=== PATIENT | male | born 1990 | race Caucasian/White ===

== ENCOUNTER 2018-07-08 09:40 | Emergency (ER) | payer OTHER ==
[~2018-07-08] VITALS: Ht 175.3 cm; Wt 78.5 kg
[~2018-07-08 09:40] MED LIST: CARB200T3 PO
--- NOTE | 2018-07-08 09:59 | PHYS DOC ---
Past History Past Medical History: No Pertinent History, Seizure Past Surgical History: Appendectomy, Tonsillectomy Smoking: Non-smoker Alcohol Use: None Drug Use: None Adult General Chief Complaint Chief Complaint: EYE PROBLEMS HPI HPI Patient is a 28 year old male who presents with right eye irritation. This started this morning. Watery drainage is present. No photophobia. No glasses or contact lens use. No [id number] work or welding. No sick contacts with conjunctivitis. No change in vision visual acuity. Nothing seems to make it better or worse. He felt like there was something in his eye and so tried rinsing it out this morning without any improvement. [] Review of Systems Review of Systems Constitutional: Denies fever or chills [] Eyes: See history of present illness[] HENT: Denies nasal congestion or sore throat [] Respiratory: Denies cough or shortness of breath [] Cardiovascular: No chest pain or palpitations[] GI: Denies abdominal pain, nausea, vomiting, bloody stools or diarrhea [] : Denies dysuria or hematuria [] Musculoskeletal: Denies back pain or joint pain [] Integument: Denies rash or skin lesions [] Neurologic: Denies headache, focal weakness or sensory changes [] Endocrine: Denies polyuria or polydipsia [] All other systems were reviewed and found to be within normal limits, except as documented in this note. Allergies Allergies Allergies Coded Allergies Type Severity Reaction Last Updated Verified No Known Drug Allergies 06/27/13 No Physical Exam Physical Exam Constitutional: Well developed, well nourished, no acute distress, non-toxic appearance. [] HENT: Normocephalic, atraumatic, bilateral external ears normal, oropharynx moist, no oral exudates, nose normal. [] Eyes: PERRLA, EOMI, conjunctiva injected on the right side, limbic sparing is present, normal fundus exam, watery discharge on the right. No fluorescein uptake.[] Neck: Normal range of motion, no tenderness, supple, no stridor. [] Cardiovascular:Heart rate regular rhythm, no murmur [] Lungs & Thorax: Bilateral breath sounds clear to auscultation [] Abdomen: Not examined. [] Skin: Warm, dry, no erythema, no rash. [] Back: No tenderness, no CVA tenderness. [] Extremities: No tenderness, no cyanosis, no clubbing, ROM intact, no edema. [] Neurologic: Alert and oriented X 3, normal motor function, normal sensory function, no focal deficits noted. [] Psychologic: Affect normal, judgement normal, mood normal. [] Current Patient Data Vital Signs Vital Signs Date Time Temp Pulse Resp B/P (MAP) Pulse Ox O2 Delivery O2 Flow Rate FiO2 07/08/18 09:45 98.4 79 16 100 Room Air EKG EKG [] Radiology/Procedures Radiology/Procedures [] Course & Med Decision Making Course & Med Decision Making Pertinent Labs and Imaging studies reviewed. (See chart for details) Medical decision making: Patient appears to have a conjunctivitis. Asians visual acuity is normal. No evidence of angle closure glaucoma, no evidence of foreign body, uveitis, nor keratitis. No evidence of an infection or ulceration. ED course: Patient arrived, was placed in bed, tolerate exam well. Discussed findings with patient who voiced understanding. All questions were answered. Patient was discharged in improved condition.[] Dragon Disclaimer Dragon Disclaimer This electronic medical record was generated, in whole or in part, using a voice recognition dictation system. Departure Departure: Impression: Primary Impression: Conjunctivitis Disposition: HOME, SELF-CARE Condition: GOOD Referrals: PCP,NO (PCP) Patient Instructions: Conjunctivitis (Viral and Bacterial) Additional Instructions: Follow-up with your regular doctor in 2 days. If you do not have regular doctor , list of local low-cost clinics will be provided for you. Return to the ER if worsening discomfort, change in vision, or any other concerns. Scripts Ketorolac Tromethamine (KETOROLAC TROMETHAMINE) 5 Ml Drops 1 DROP OD QID for eye pain, #5 ML Prov: ASHLEIGH POLANCO DO 07/08/18 Erythromycin Base (Erythromycin) 1 Gm Oint...g. 1 EDGARDO OP Q4HRS W/A for conjunctivitis for 5 Days, [facility] [place] Prov: ASHLEIGH POLANCO DO 07/08/18 Problem Qualifiers Primary Impression: Conjunctivitis Conjunctivitis type: acute Acute conjunctivitis type: unspecified Laterality: right Qualified Codes: H10.31 - Unspecified acute conjunctivitis , right eye ASHLEIGH POLANCO DO Jul 08, 2018 09:59
[2018-07-08] MEDS ORDERED: FLUORESCEIN 1MG EYE STRIP. OD ONE (10:00)
[2018-07-08 10:25] VITALS: BP 112/47
[2018-07-08] MEDS ORDERED: ERYT1OIN6 OP (10:25)
[2018-07-08] MEDS ORDERED: KETO5DRO24 OD (10:25)
== END 2018-07-08 10:28 | disposition home or self-care (01) ==
LOC: ER 09:40
DX: H10.31 Unspecified acute conjunctivitis, right eye (principal)
CPT/HCPCS: 99283

== ENCOUNTER 2021-09-03 16:33 | Emergency (ER) | payer SELFPAY ==
[~2021-09-03] VITALS: Ht 175.3 cm; Wt 95.4 kg
[~2021-09-03 16:33] MED LIST changes: +ERYT1OIN6 OP; +KETO5DRO24 OD
[2021-09-03 16:43] VITALS: BP 142/80
[2021-09-03] MEDS ORDERED: HYDROcodone/APAP 5/325MG 1 TAB TABLET PO ONE (17:00)
[2021-09-03] MEDS ORDERED: DIPHTH,PERTUSS(ACELL),TET TOX 0.5 ML DISP.SYRIN. VAX IM ONE (17:00)
[2021-09-03] MEDS ORDERED: HYDR-2155 PO (17:02)
--- NOTE | 2021-09-03 17:03 | PHYS DOC ---
Past History Past Medical History: No Pertinent History, Seizure (DAIJA BURGOS APRN) Past Surgical History: No Surgical History (DAIJA BURGOS APRN) Smoking: Non-smoker Alcohol Use: None Drug Use: None (DAIJA BURGOS APRN) General Adult EDM: Chief Complaint: PARTIAL AMPUTATION/AVULSION HPI: HPI: Patient is a 31-year-old male who presents after cutting off the tip of his left pinky. Patient states he was using a table saw when the saw jumped cut off the tip of his pinky. Bleeding was controlled. Patient denies pain at this time. Tetanus is not up-to-date. Denies medical history. (DAIJA BURGOS APRN) Review of Systems: Review of Systems: ROS At least 10 ROS systems have been reviewed and are negative except as documented in the HPI. General: Negative except as outlined in HPI above. Skin: Negative except as outlined in HPI above. HEENT: Negative except as outlined in HPI above. Neck: Negative except as outlined in HPI above. Respiratory: Negative except as outlined in HPI above.. Cardiovascular: Negative except as outlined in HPI above. Abdomen: Negative except as outlined in HPI above. : Negative except as outlined in HPI above. Back/MSK: Negative except as outlined in HPI above. Neuro: Negative except as outlined in HPI above. Psych: Negative except as outlined in HPI above. (DAIJA BURGOS APRN) Current Medications: Current Meds: Current Medications Medications (Trade) Dose Ordered Sig/Cleo Start Time Stop Time Status Last Admin Dose Admin Acetaminophen/ Hydrocodone Bitart (Lortab 5/325) 1 tab 1X ONCE 09/03/21 17:00 09/03/21 17:01 UNV Diphtheria/ Tetanus/Acell Pertussis (Boostrix) 0.5 ml ONCE ONCE 09/03/21 17:00 09/03/21 17:01 UNV (DAIJA BURGOS APRN) Allergies: Allergies: Allergies Coded Allergies Type Severity Reaction Last Updated Verified No Known Drug Allergies 06/27/13 No (DAIJA BURGOS APRN) Physical Exam: PE: Constitutional: Well developed, well nourished, no acute distress, non-toxic appearance. [] HENT: Normocephalic, atraumatic, bilateral external ears normal, oropharynx moist, no oral exudates, nose normal. [] Eyes: PERRLA, EOMI, conjunctiva normal, no discharge. [] Neck: Normal range of motion, no tenderness, supple, no stridor. [] Cardiovascular:Heart rate regular rhythm, no murmur [] Lungs & Thorax: Bilateral breath sounds clear to auscultation [] Abdomen: Bowel sounds normal, soft, no tenderness, no masses, no pulsatile masses. [] Skin: Warm, dry, no erythema, no rash. [] Back: No tenderness, no CVA tenderness. [] Extremities: Left, pinky finger amputation, tenderness, bleeding controlled, ROM intact Neurologic: Alert and oriented X 3, normal motor function, normal sensory function, no focal deficits noted. [] Psychologic: Affect normal, judgement normal, mood normal. [] (DAIJA BURGOS APRN) Current Patient Data: Vital Signs: Vital Signs Date Time Temp Pulse Resp B/P (MAP) Pulse Ox O2 Delivery O2 Flow Rate FiO2 09/03/21 16:43 98.3 87 18 142/80 (100) 99 Room Air (DAIJA BURGOS APRN) EKG: EKG: [] (DAIJA BURGOS APRN) Radiology/Procedures: Radiology/Procedures: [] (DAIJA BURGOS APRN) Heart Score: C/O Chest Pain: No Risk Factors: Risk Factors: DM, Current or recent (<one month) smoker, HTN, HLP, family history of CAD, obesity. Risk Scores: Score 0 - 3: 2.5% MACE over next 6 weeks - Discharge Home Score 4 - 6: 20.3% MACE over next 6 weeks - Admit for Clinical Observation Score 7 - 10: 72.7% MACE over next 6 weeks - Early Invasive Strategies (DAIJA BURGOS APRN) Course & Med Decision Making: Course & Med Decision Making Pertinent Labs and Imaging studies reviewed. (See chart for details) [] 31-year-old male presents after cutting off the tip of his left pinky with a table saw. X-ray of left hand ordered. Wound was cleaned, tetanus administered, 1 suture was placed to tack down skin. Wound wrapped and ulnar gutter splint applied. [facility] Contact information given to patient to call in the morning and make an appointment. I spoke with Dr.Thuan Neves, hand surgeon at [facility], who will be seeing the patient in the morning. Patient given hydrocodone here for pain. Sending patient home with pain medication as well. Patient still reporting pain. Patient given IM Dilaudid. Discussed return precautions. Patient states he will call the hand surgeon in the morning and make a follow-up. Patient is hemodynamically stable upon disposition. (DAIJA BURGOS APRN) Dragon Disclaimer: Dragcody Disclaimer: This electronic medical record was generated, in whole or in part, using a voice recognition dictation system. (DAIJA BURGOS APRN) Attending Co-Sign The patient was seen and interviewed as well as examined at the bedside. The chart was reviewed. The case was discussed. Agree with the plan of care. (CHAI BUSCH DO) Departure Departure: Impression: Primary Impression: Finger amputation, no complication Qualified Codes: S68.119A - Complete traumatic metacarpophalangeal amputation of unspecified finger, initial encounter Disposition: HOME / SELF CARE / HOMELESS Condition: STABLE Referrals: PCP,NO (PCP) Patient Instructions: Fingertip Injuries and Amputations Additional Instructions: You were seen in the emergency room for a fingertip amputation. Your wound was cleaned out, tetanus was updated. Your wound was covered and hand was placed in a splint. I spoke with the hand surgeon at [facility] who wants to see you in his clinic tomorrow. I am including his contact information below. Call him in the morning for a follow-up appointment tomorrow. I am sending you home with prescription for pain medication. Return to the emergency room with worsening symptoms or concerns. [facility]-Hand Surgeon [address] [address] EMERGENCY DEPARTMENT GENERAL DISCHARGE INSTRUCTIONS Thank you for coming to [facility] (ED) today and trusting us with you care. We trust that you had a positivie experience in our Emergency Department. If you wish to speak to the department management, you may call the director at [phone]. YOUR FOLLOW UP INSTRUCTIONS ARE FOLLOWS: 1. Do you have a private Doctor? If you do not have a private doctor, please ask for a resource list of physicians or clinics that may be able to assist you with follow up care. 2. The Emergency Physician has interpreted your x-rays. The X-Ray specialist will also review them. If there is a change in the findings, you will be notified in 48 hours when at all possible. 3. A lab test or culture has been done, your results will be reviewed and you will be notified if you need a change in treatment. ADDITIONAL INSTRUCTIONS AND INFORMATION: 1. Your care today has been supervised by a physician who is specially trained in emergency care. Many problems require more than one evaluation for a complete diagnosis and treatment. We recommend that you schedule your follow up appointment as recommended to ensure complete treatment of you illness or injury. If you are unable to obtain follow up care and continue to have a problem, or if your condition worsens, we recommend that you return to the ED. 2. We are not able to safely determine your condition over the phone nor are we able to give sound medical advice over the phone. For these safety reasons, if you call for medical advice we will ask you to come to the ED for further evaluation. 3. If you have any questions regarding these discharge instructions please call the ED at [phone]. SAFETY INFORMATION: In the interest of safety, wellness, and injury prevention; we encourage you to wear your sealbelt, if you smoke; quite smoking, and we encourage family to use a protective helmet for bicycling and other sporting events that present an increased risk for head injury. IF YOUR SYMPTOMS WORSEN OR NEW SYMPTOMS DEVELOP, OR YOU HAVE CONCERNS ABOUT YOUR CONDITION; OR IF YOUR CONDITION WORSENS WHILE YOU ARE WAITING FOR YOUR FOLLOW UP APPOINTMENT; EITHER CONTACT YOUR PRIMARY CARE DOCTOR, THE PHYSICIAN WHOSE NAME AND NUMBER YOU WERE GIVEN, OR RETURN TO THE ED IMMEDIATELY. Scripts Hydrocodone Bit/Acetaminophen (HYDROCODONE-APAP 5-325 ) 1 Each Tablet 1-2 TAB PO PRN Q6HRS PRN for PAIN for 3 Days, #12 TAB 0 Refills Prov: DAIJA BURGOS APRN 09/03/21 DAIJA BURGOS APRN Sep 03, 2021 17:03 CHAI BUSCH DO Sep 04, 2021 11:21
--- NOTE | 2021-09-03 17:16 | RAD ---
Study: XR HAND_LEFT 3 VIEWS Indication: Severed pinky. Comparison: None. Findings/ Impression: Traumatic amputation of the little finger distal phalanx. It appears as if a very small portion of th e base of the distal phalanx remains. Surrounding tiny increased density foci either retained bone fr agments or nonosseous debris. No osseous abnormality throughout the rest of the hand or at the wrist. Electronically signed by: FLORECITA WESTON MD (09/03/2021 5:14 PM) [facility]
[2021-09-03] MEDS ORDERED: HYDROmorphone PF 1 MG/ML DISP.SYRIN IM ONE (17:45)
== END 2021-09-03 18:20 | disposition home or self-care (01) ==
LOC: ER 16:33
DX: S68.117A Complete traumatic metacarpophalangeal amputation of left little finger, initial encounter (principal); W27.0XXA Contact with workbench tool, initial encounter; Y93.89 Activity, other specified; Y92.89 Other specified places as the place of occurrence of the external cause; Y99.8 Other external cause status
CPT/HCPCS: 29125; 73130; 90471; 90715; 96372; 99284; J1170